=== PATIENT | male | born 1930 | race Caucasian/White ===

== ENCOUNTER 2018-09-03 08:11 | Emergency (ER) | payer MEDICARE, OTHER ==
[~2018-09-03] VITALS: Ht 172.7 cm; Wt 70.3 kg
[2018-09-03 08:18] VITALS: BP 111/96
== END 2018-09-03 10:12 | disposition home or self-care (01) ==
LOC: ER 08:11
DX: R07.89 Other chest pain (principal); K59.00 Constipation, unspecified
CPT/HCPCS: 74176; 93005

== ENCOUNTER 2018-10-17 16:07 | Emergency (ER) | payer MEDICARE, OTHER ==
[~2018-10-17] VITALS: Ht 170.2 cm; Wt 76.2 kg
[2018-10-17] MEDS ORDERED: cloNIDine HCL 0.1 MG TAB PO ONE (21:30)
[2018-10-17] MEDS ORDERED: HYDROcodone-ACET 5/325MG TAB PO ONE (21:30)
[2018-10-17 23:42] VITALS: BP 141/80
== END 2018-10-17 23:52 | disposition home or self-care (01) ==
LOC: ER 16:17
DX: S76.012A Strain of muscle, fascia and tendon of left hip, initial encounter (principal); S39.012A Strain of muscle, fascia and tendon of lower back, initial encounter; I10 Essential (primary) hypertension; X58.XXXA Exposure to other specified factors, initial encounter; Y93.89 Activity, other specified; Y92.89 Other specified places as the place of occurrence of the external cause; Y99.8 Other external cause status
CPT/HCPCS: 72110; 73502; 94761

== ENCOUNTER 2019-04-06 09:47 | Emergency (ER) | payer MEDICARE, OTHER ==
[~2019-04-06] VITALS: Ht 170.2 cm; Wt 70.3 kg
[2019-04-06 13:23] LABS: Basophils # (auto) 0 uL; Basophils % (auto) 0.2 % (0.0-2.0); Eosinophils # (auto) 0.1 uL; Eosinophils % (auto) 1.4 % (0.0-7.0); Hematocrit 45.9 % (41.0-53.0); Hemoglobin 15.5 g/dL (13.5-17.5); Lymphocytes % (auto) 24.3 % (10.0-50.0); Mean Corpuscular Hemoglobin 32.2 pg (28.0-32.0); Mean Corpuscular Hgb Conc. 33.7 g/dL (32.0-36.0); Mean Corpuscular Volume 95.6 fL (80.0-100.0); Monocytes # (auto) 0.9 uL; Monocytes % (auto) 10.4 % (0.0-12.0); Neutrophils # (auto) 5.3 uL; Neutrophils % (auto) 63.7 % (37.0-80.0); Nucleated Red Blood Cells % 0.1 %; Platelet Count (auto) 277 10^3/uL (140-450); Red Cell Distribution Width 15.8 % (11.8-14.3); White Blood Cell 8.3 10^3/uL (4.4-10.8)
[2019-04-06 13:40] LABS: INR 1.07 (0.9-1.15); Partial Thromboplastin Time 29.6 sec (23.64-32.05)
[2019-04-06 15:30] LABS: Urine WBC None Seen /hpf (0 - 3)
[2019-04-06 15:46] LABS: Anion Gap 11 (5-15); Blood Urea Nitrogen 17 mg/dL (7-18); Carbon Dioxide 22 mmol/L (21-32); Chloride 108 mmol/L (98-107); Glucose 106 mg/dL (74-106); Potassium 4.4 mmol/L (3.5-5.1); Sodium 141 mmol/L (136-145)
[2019-04-06 15:47] LABS: Alanine Aminotransferase 20 U/L (16-61); Alkaline Phosphatase 68 U/L (45-117); Aspartate Aminotransferase 20 U/L (15-37); BUN/Creatinine Ratio 13.7; Bilirubin, Total 0.6 mg/dL (0.2-1.0); Calcium 8.7 mg/dL (8.5-10.1); GFR African American 71 mL/min; GFR Non-African American 58 mL/min
[2019-04-06 15:48] LABS: Albumin 3.7 g/dL (3.4-5.0); Magnesium 2.6 mg/dL (1.6-2.6); Total Protein 7.9 g/dL (6.4-8.2)
[2019-04-06 15:55] LABS: Urine Bacteria NONE SEEN /hpf (None Seen); Urine Blood Negative /uL (Negative); Urine Specific Gravity 1.007 (1.001-1.035)
[2019-04-06 16:33] VITALS: BP 141/97
[2019-04-06] MEDS ORDERED: SODIUM CHLORIDE 0.9% 1,000 ML IV ONE (17:30)
[2019-04-06] MEDS ORDERED: MORPHINE SULFATE 4 MG/ML SYR/VIAL IV ONE (17:30)
[2019-04-06] MEDS ORDERED: ONDANSETRON HCL 4 MG/2 ML VIAL IV ONE (17:30)
== END 2019-04-06 17:44 | disposition left against medical advice (07) ==
LOC: ER 09:47
DX: I48.0 Paroxysmal atrial fibrillation (principal); M48.061 Spinal stenosis, lumbar region without neurogenic claudication; M25.551 Pain in right hip; I11.0 Hypertensive heart disease with heart failure; I50.9 Heart failure, unspecified
CPT/HCPCS: 36415; 71045; 72131; 73502; 80053; 81001; 83735; 83880; 84484; 85025; 85610; 85730; 93005